=== PATIENT | female | born 1985 | race African-American/Black ===

== ENCOUNTER 2016-10-31 20:17 | Emergency (ER) | payer OTHER ==
[~2016-10-31] VITALS: Ht 170.2 cm; Wt 80.3 kg
[~2016-10-31 20:17] MED LIST: ACETAMINOPHEN-120 ML PO; BENADRYL ITCH118 ML; HYDROCODONE-AP1 EAC6 PO; IBUPROFEN 600600 M1 PO; IBUPROFEN 800800 MG PO; NORCO 5-325 TA1 EACH PO; NUVARING VAGIN1 EACH; PENICILLIN V P500 MG PO; PENICILLIN VK500 MG PO; TAMIFLU PO; ULTRAM 50MG TAB50 MG PO; VASELINE; ZITHROMAX1 GM; ZOFRAN ODT4 MG PO; ZOFRAN4 MG PO
[2016-10-31 20:29] VITALS: BP 120/82
[2016-10-31] MEDS ORDERED: PENICILLIN V P500 MG PO (20:44)
[2016-10-31] MEDS ORDERED: MOBIC15 MG PO (20:44)
== END 2016-10-31 21:00 | disposition home or self-care (01) ==
LOC: ER 20:17
DX: K08.89 Other specified disorders of teeth and supporting structures (principal)